=== PATIENT | female | born 1995 | race Caucasian/White ===

== ENCOUNTER → 2023-08-12 16:00 | Outpatient (BNVA) | payer MEDICARE, MEDICAID, SELFPAY | PROVIDERS: PCP Family Medicine; Visit Provider Family Medicine | DX: I10 Essential (primary) hypertension (principal); D64.9 Anemia, unspecified; F32.A Depression, unspecified; F41.9 Anxiety disorder, unspecified; M54.50 Low back pain, unspecified | CPT/HCPCS: 80053; 80061; 84443; 85025 ==

== ENCOUNTER → 2023-09-21 09:25 | Outpatient (BNVA) | payer MEDICARE, MEDICAID, SELFPAY | PROVIDERS: PCP Family Medicine; Visit Provider Family Medicine | DX: R07.9 Chest pain, unspecified (principal) | CPT/HCPCS: 93005 ==

== ENCOUNTER 2023-11-09 12:51 | Outpatient (CLI) | payer MEDICARE, MEDICAID, SELFPAY ==
--- NOTE | 2023-11-09 12:59 | XRR_ITS ---
PROCEDURE INFORMATION: Exam: XR Lumbosacral Spine Exam date and time: 11/09/2023 1:20 PM Age: 28 years old Clinical indication: Low back pain; Additional info: Vertebrogenic low back pain TECHNIQUE: Imaging protocol: Radiologic exam of the lumbosacral spine. Views: 2 or 3 views. COMPARISON: No relevant prior studies available. FINDINGS: Bones/joints: Bilateral L5 spondylolysis with grade 1/2 spondylolisthesis. Mild disc space narrowing at L5-S1. This does not appear to appreciably change with back motion.. No acute fracture. Normal alignment. Soft tissues: Unremarkable. XR/XR lumbar spine f/e only [id number] IMPRESSION: L5 spondylolysis with spondylolisthesis.
== END 2023-11-09 12:52 | disposition home or self-care (01) ==
LOC: RAD 12:54
PROVIDERS: PCP Family Medicine; Visit Provider Nurse Practitioner
DX: M47.816 Spondylosis without myelopathy or radiculopathy, lumbar region (principal); M43.16 Spondylolisthesis, lumbar region
CPT/HCPCS: 72120

== ENCOUNTER → 2023-11-13 11:46 | Outpatient (BNVA) | payer MEDICARE, MEDICAID, SELFPAY | PROVIDERS: PCP Family Medicine; Visit Provider Family Medicine | DX: I10 Essential (primary) hypertension (principal); D50.9 Iron deficiency anemia, unspecified; E66.9 Obesity, unspecified | CPT/HCPCS: 80053; 80061; 83540; 84443; 85025 ==

== ENCOUNTER → 2024-01-12 16:56 | Outpatient (BNVA) | payer MEDICARE, MEDICAID, SELFPAY | PROVIDERS: PCP Family Medicine; Visit Provider Family Medicine | DX: Z12.4 Encounter for screening for malignant neoplasm of cervix (principal) | CPT/HCPCS: 88175 ==

== ENCOUNTER → 2024-03-10 14:00 | Outpatient (BNVA) | payer MEDICAID, SELFPAY | PROVIDERS: PCP Family Medicine; Visit Provider Family Medicine | DX: E66.9 Obesity, unspecified (principal) | CPT/HCPCS: 80053 ==

== ENCOUNTER → 2024-07-19 13:51 | Outpatient (BNVA) | payer MEDICARE, MEDICAID, SELFPAY | PROVIDERS: PCP Nurse Practitioner Family; Visit Provider Orthopaedic Surgery | DX: M54.50 Low back pain, unspecified (principal); M43.17 Spondylolisthesis, lumbosacral region | CPT/HCPCS: 72110; 99204 ==

== ENCOUNTER 2024-07-22 06:59 | Outpatient (CLI) | payer MEDICARE, MEDICAID, SELFPAY ==
--- NOTE | 2024-07-22 07:15 | MR_ITS ---
WS: [id number] MRI LUMBAR SPINE NONCONTRAST TECHNIQUE: Sagittal T1, T2 and STIR imaging. Axial T1 and T2 imaging. CLINICAL INFORMATION: back pain COMPARISON: None. FINDINGS: Mild lumbar curve. No acute compression. No high-grade central canal stenosis. Grade 1 anterolisthesi s L5 on S1 with chronic pars defects. Dependent edema in the subcutaneous soft tissues. L1-L2: Mild facet arthropathy. Spinal canal and foramen are patent. L2-L3: Moderate facet arthropathy. Spinal canal and foramen are patent. L3-L4: No significant disc bulging. Moderate facet arthropathy. Spinal canal and foramen are patent. L4-L5: Mild annular bulging. Moderate facet arthropathy. Spinal canal and foramen are patent. L5-S1: Grade 1 anterolisthesis with chronic bilateral pars defects. Tiny annular fissure with mild di sc bulging. Moderate facet arthropathy. Mild bilateral foraminal narrowing with slight contact of the exiting L5 nerve roots bilaterally. Moderate facet arthropathy Visualized pelvic bony structures: Normal. Paravertebral soft tissues: Normal. MR/MR lumbar spine wo con* [id number] IMPRESSION: 1. Grade 1 anterolisthesis L5 on S1 with chronic bilateral pars defects. 2. Mild bilateral 5 S1 foraminal narrowing with moderate facet arthropathy. Mi ld disc bulging at this level with a tiny annular fissure. 3. Mild to moderate facet arthropathy throughout the lumbar spine. 4. No other acute findings.
== END 2024-07-22 07:00 | disposition home or self-care (01) ==
LOC: RAD 07:00
PROVIDERS: PCP Nurse Practitioner Family; Visit Provider Orthopaedic Surgery
DX: M43.16 Spondylolisthesis, lumbar region (principal); M47.896 Other spondylosis, lumbar region; M47.898 Other spondylosis, sacral and sacrococcygeal region
CPT/HCPCS: 72148

== ENCOUNTER → 2024-08-05 10:28 | Outpatient (BNVA) | payer MEDICARE, MEDICAID, SELFPAY | PROVIDERS: PCP Nurse Practitioner Family; Visit Provider Nurse Practitioner Family | DX: I10 Essential (primary) hypertension (principal); D50.9 Iron deficiency anemia, unspecified | CPT/HCPCS: 80053; 80061; 82607; 82728; 82746; 83550; 84443; 85025 ==

== ENCOUNTER → 2024-09-06 10:45 | Outpatient (BNVA) | payer MEDICARE, MEDICAID, SELFPAY | PROVIDERS: PCP Nurse Practitioner Family; Visit Provider Orthopaedic Surgery | DX: M43.17 Spondylolisthesis, lumbosacral region (principal) | CPT/HCPCS: 36415; 80053; 81001; 85025; 99214 ==

== ENCOUNTER → 2024-10-24 11:46 | Outpatient (BNVA) | payer MEDICARE, MEDICAID, SELFPAY | PROVIDERS: PCP Nurse Practitioner Family; Visit Provider Family Medicine | DX: Z01.818 Encounter for other preprocedural examination (principal) | CPT/HCPCS: 80053; 81003; 85007; 85027 ==

== ENCOUNTER 2024-10-26 10:49 | Observation (INO) | payer MEDICARE, MEDICAID, SELFPAY ==
[2024-10-26] VITALS (27 sets, daily range): BP systolic 100–137; BP diastolic 70–93; PULSE 79–116; RESP 13–22; TEMP 36.2–37.1; O2SAT 92–98; BMI 47.7
[2024-10-26] MEDS: sodium chloride 0.9% 1,000 ML 30 ML IV (06:12)
[2024-10-26 06:16] LABS: OR HCG Qualitative Urine Negative (Negative)
--- NOTE | 2024-10-26 06:26 | W.PM.OPSFHP ---
Same Day Surgery H&P Indication for Procedure/HPI DATE OF PROCEDURE: October 26, 2024 CHIEF COMPLAINT/INDICATIONFOR SURGICAL PROCEDURE: Back and leg pain PREOP DIAGNOSIS: L5-S1 spondylolisthesis PLANNED PROCEDURE: Operation Date: 10/26/24 07:00 Proposed Procedures p Spinal Fusion PSF(Not Applicable) - Carlos Eugene DO Medications/Allergies* Home Medications ?Medication ?Instructions ?Recorded ?Confirmed ?Type biotin 5,000 mcg chewable tablet 5,000 mcg PO DAILY 10/24/24 10/26/24 History Allergies/Adverse Reactions Allergy/AdvReac Type Severity Reaction Status Date / Time fluticasone (From Flonase) Allergy Intermediate ADR-Nose Verified 10/26/24 05:54 Bleed Opioids - Morphine Analogues Allergy Intermediate ALGY-Rash Verified 10/26/24 05:54 Current Medications: Generic Name Dose Route Start Last Admin Trade Name Freq PRN Reason Stop Dose Admin Sodium Chloride 1,000 mls @ 30 mls/hr 10/26/24 06:00 10/26/24 06:12 Sodium Chloride 0.9% IV 10/27/24 05:59 30 mls/hr .Q24H ROSANNE Administration Pertinent History/Comorbid Conditions* Medical History (Updated 07/19/24 @ 14:37 by Carlos Eugene DO) URI with cough and congestion Anxiety Depression Anemia Hypertension Surgical History (Updated 08/12/23 @ 15:47 by Angeli Dickerson MD) Hx of cholecystectomy Family History (Updated 08/12/23 @ 14:47 by Augustina Madden LPN, RT) Diabetes Grandmother Depression Denies family history of Clotting disorder Social History Smoking and tobacco/nicotine status: never used tobacco/nicotine Second hand smoke exposure: Yes Alcohol intake: never Substance/Drug Use: never Caregiver/support person: Yes Lives independently: No Household members: family Marital status: Single Highest education level completed: High School Graduate service: No Current occupational status: disabled Current gender identity: Female Special prakash needs: No Agree to transfusion: Yes Pertinent Exam Findings alert, oriented x 3 and procedure specific exam findings Recommendations Surgery/Procedure today Coding Level of Care Code Acute Code for Chg Fwd
--- NOTE | 2024-10-26 06:40 | ANES.PREANE2 ---
Pre-Anesthetic Assessment Height/Weight: Height 1.55 m Weight 114.759 kg Temp Pulse Resp BP Pulse Ox O2 Del Method 97.1 F L 96 17 123/82 94 Room Air 10/26/24 05:58 10/26/24 05:58 10/26/24 05:58 10/26/24 05:58 10/26/24 05:58 10/26/24 05:59 Preop Diagnosis: L5-S1 spondylolisthesis Operation Date: 10/26/24 07:00 Proposed Procedures p Spinal Fusion PSF(Not Applicable) - Carlos Eugene, DO Familial anesthetic complications: None Was Beta Sunny taken within 24 hours: N/A Was Clonidine taken within 24 hours: N/A Last intake: Intake Last Liquid Date 10/25/24 Last Liquid Time 20:00 Last Solid Date 10/25/24 Last Solid Time 18:00 Social No alcohol and No tobacco Exam alert, oriented x 3, clear to auscultation bilaterally and regular rate & rhythm Airway Mallampati: Class III Dentition: other (crowns) CV/HEM Hypertension GI Gastroesophageal Reflux Disease celiac Metabolic Morbid Obesity Anesthetic Plan ASA status: 3 Anesthesia: General Risk of > 500 ml blood loss (7ml/kg in children): No Medications/Allergies Home Medications ?Medication ?Instructions ?Recorded ?Confirmed ?Last Taken ?Type amlodipine 10 mg tablet 10 mg PO DAILY #30 tabs 08/05/24 10/26/24 10/26/24 Rx cetirizine 10 mg tablet (Zyrtec) 10 mg PO DAILY PRN allergy 08/05/24 10/26/24 Unknown Rx symptoms #90 tabs ferrous fumarate 325 mg (106 mg 325 mg PO DAILY #30 tabs 08/05/24 10/26/24 10/26/24 Rx iron) tablet fluoxetine 40 mg capsule 40 mg PO DAILY #30 caps 08/05/24 10/26/24 10/26/24 Rx montelukast 10 mg tablet 10 mg PO DAILY #30 tabs 08/05/24 10/26/24 10/26/24 Rx pantoprazole 40 mg tablet,delayed 40 mg PO DAILY #30 tabs 08/05/24 10/26/24 10/26/24 Rx release (Protonix) Bone Growth Stimulator #1 ea 10/04/24 Unknown Rx biotin 5,000 mcg chewable tablet 5,000 mcg PO DAILY 10/24/24 10/26/24 Unknown History Allergies Allergy/AdvReac Type Severity Reaction Status Date / Time fluticasone (From Flonase) Allergy Intermediate ADR-Nose Verified 10/26/24 05:54 Bleed Opioids - Morphine Analogues Allergy Intermediate ALGY-Rash Verified 10/26/24 05:54 Current Medications Generic Name Dose Route Start Last Admin Trade Name Freq PRN Reason Stop Dose Admin Sodium Chloride 1,000 mls @ 30 mls/hr 10/26/24 06:00 10/26/24 06:12 Sodium Chloride 0.9% IV 10/27/24 05:59 30 mls/hr .Q24H ROSANNE Administration PFSH Anesthesia Medical History URI with cough and congestion Anxiety Depression Anemia Hypertension Surgical History Hx of cholecystectomy Family History Grandmother Diabetes Other Depression Denies family history of Clotting disorder Social History Smoking and tobacco/nicotine status: never used tobacco/nicotine Second hand smoke exposure: Yes Alcohol intake: never Substance/Drug Use: never Caregiver/support person: Yes Lives independently: No Household members: family Marital status: Single Highest education level completed: High School Graduate service: No Current occupational status: disabled Current gender identity: Female Special prakash needs: No Agree to transfusion: Yes Data Anesthesia Cardiac Studies: No Data to Display
[2024-10-26] MEDS: ceFAZolin 2,000 mg SDV 2000 MG IVP ×3 (06:58→23:10)
[2024-10-26] MEDS: lidocaine-epi 1% 20 mL INJ 10 ML INJECTION (07:50)
[2024-10-26] MEDS: heparin, porcine 1,000 unit/mL INJ 10 mL 10000 UNIT IRRIGATION (07:50)
[2024-10-26] MEDS: VANCOMYCIN ADD-Vantage 1,000 MG VIAL 1000 MG XX ×2 (07:51→10:00)
--- NOTE | 2024-10-26 10:55 | P.OP_ITS ---
Operative Report Date of procedure: October 26, 2024 Pre-op diagnosis: L5-S1 grade 2 spondylolisthesis Post-op diagnosis: same Procedure done: 1. L5/S1 Interbody fusion with posterolateral fusion 2. Instrumentation L5/S1 3. Cage at L5/S1 4. L5/S1 laminectomy with facetectomies 5. use of autograft from same incision 6. allograft 7. Bone marrow aspirate from right iliac crest 8. Reduction of spondylolisthesis Surgeon: Carlos Eugene DO Estimated blood loss (mL): 450 Procedure: 1. L5/S1 Interbody fusion with posterolateral fusion 2. Instrumentation L5/S1 3. Cage at L5/S1 4. L5/S1 laminectomy with facetectomies 5. use of autograft from same incision 6. allograft 7. Bone marrow aspirate from right iliac crest 8. Reduction of spondylolisthesis Patient is brought to the operative suite. After undergoing anesthesia, the patient had neuro monitoring attached. Patient was then placed in the prone position on the Uriel table. All areas of impingement were well-padded. Patient was then prepped and draped in the normal sterile fashion. Skin incision was then made over the L5/S1 space. Subperiosteal dissection was made out to the transverse processes of L5 and S1. Once the exposure was complete attention was then brought to placing the pedicle screws. Prior to placing the pedicle screws the [place] bone marrow aspirate kit was used to aspirate bone marrow aspirate. This was done by using the sharp probe to open up the bone. Aspiration was performed and then the blunt probe was then used to dissect down to through the bone tunnel. An aspirating well drawn back a millimeter approximately 20 cc of bone marrow aspirate was used. Admixed with the allograft and autograft bone that will be used. The technique for placing the pedicle screws was to use a drill followed by the gearshift probe. Followed by the ball probe to feel the superior inferior medial lateral nieto of the pedicles. Then placement of the screws. Was done at each pedicle. Screws were placed at L5 bilaterally and S1 . Next attention was brought to performing the laminectomy ofL5. This was done using the high-speed bur Kerrisons and curettes. Once the lamina was removed and then attention was brought to performing a partial facetectomy on the contralateral side. This was done again using the high-speed bur curettes and Kerrisons. The ligamentum flavum was taken down bilaterally from L5 to S1. Attention was then brought to the facet on the ipsilateral side. The facet was taken down. The S1 nerve was decompressed as it passed around the S1 pedicle. The laminectomy was done for purposes of decompressing the nerve as well as placement of the cage. The L5 nerve was identified as it traversed through the L5/S1 foramen. The thecal sac was identified and retracted. The L5/S1 disc space was identified. Using a knife the disc base was opened. And then sequential stvee were placed. The first shaver was a 6 and the last shaver was a 10. Using a pituitary and down going curette the endplates were scraped and disc material was removed from the space. Once adequate decompression of the disc base was felt to be had. Osteoamp sponge was packed into the anterior aspect of the disc base. Then a size 11 cage from [employer] was placed after packing osteoamp into the cage. While placing the cage the thecal sac and S1 nerve was protected. C arm was used to ensure that the cages placed in the appropriate position. Attention was then brought to attaching the rods to the screws placed in the L5 bilaterally and S1. The S1 screw was locked in purse above the L5 screw reduction tool was used to reduce the L4 screw to the stefano allowing reduction of the L5-S1 spondylolisthesis. Caps were torqued into position. Locking the construct in place. Wound was copiously irrigated and then attention was brought to decorticating the facets and transverse processes laterally. Bone that was taken down from the lamina was used along with osteoamp fibers and sponges were packed into the lateral gutters along the facet joints. This was done bilaterally. Wound was then closed in a layered fashion starting with the thoracolumbar fascia. 0-vicryl was used the sub cutaneous tissue was closed with 2-0 vicryl and skin with 4-0 monocryl. Glue was then used to seal the skin and a steril dressing was applied. Patient was then placed in the supine position. The endotracheal tube was removed and patient was transferred to the PACU in stable condition.
[2024-10-26 11:31] LABS: Bilirubin Urine Negative (Negative); Blood Urine Negative (Negative); Glucose Urine UA Negative (Normal); Ketones Urine Negative (Negative); Leukocyte Esterase Urine Negative (Negative); Nitrate Urine Negative (Negative); Protein Urine Trace (Negative); Urine Appearance Turbid (CLEAR); Urine Color Yellow (Yellow); pH Urine 5.5 (5-7)
[2024-10-26 11:33] LABS: Add Urine Microscopic? YES; Bacteria Urine None Seen /hpf; Hyaline Casts Urine 2.46 /lpf; Squamous Epithelial Cell Urine 0-5 /hpf (0-5); WBC Urine 0-5 /hpf (0-5)
[2024-10-26 11:36] LABS: Add Urine Culture? No; Specific Gravity, Urine 1.037 (1.005-1.030)
[2024-10-26] MEDS: fentaNYL 50 mcg/mL INJ 2mL IVP ×2 (11:42→11:57)
--- NOTE | 2024-10-26 12:10 | ANE.PACU2 ---
Inpatient post-anesthesia follow up: Airway intact: Yes Vital signs: Temperature 98.6 F Pulse Rate 94 Respiratory Rate 18 Blood Pressure 121/83 Pulse Oximetry 97 Oxygen Delivery Me thod Room Air Oxygen Flow Rate 8 Fraction of Inspir ed Oxygen Hydration adequate: Yes Nausea and vomiting: No Pain level: 1 Mental status: Baseline
[2024-10-26] MEDS: lactated ringers 1,000 ML 90 ML IV ×2 (12:25→23:09)
[2024-10-26] MEDS: ketorolac 30 mg/mL INJ IVP (12:35)
--- NOTE | 2024-10-26 13:40 | XR_ITS ---
WS: [id number] Lumbar spine, C ARM fluoroscopy views, 10/26/2024 Clinical Data: TRISTEN PICS Comparison: Lumbar spine, 07/19/2024 Findings: Dr. Eugene performed a lumbosacral posterior fusion. XR/XR lumbar spine 2-3V* [id number] Impression: Posterior lumbosacral fusion.
[2024-10-26] MEDS: HYDROcodone-acetaminophen 5-325 mg Tablet PO ×2 (15:59→20:16)
[2024-10-26] MEDS: docusate sodium 100 mg Capsule PO (17:39)
[2024-10-27 04:24] VITALS: BP 124/79; PULSE 90; RESP 18; TEMP 36.9; O2SAT 94
[2024-10-27] MEDS: ceFAZolin 2,000 mg SDV 2000 MG IVP (05:49)
[2024-10-27] MEDS: HYDROcodone-acetaminophen 5-325 mg Tablet PO ×2 (05:50→10:29)
[2024-10-27 07:22] VITALS: BP 117/76; PULSE 93; RESP 16; TEMP 36.7; O2SAT 97
[2024-10-27] MEDS: fluoxetine 20 mg Capsule 40 MG PO (08:14)
[2024-10-27] MEDS: montelukast sodium 10 mg Tablet PO (08:15)
[2024-10-27] MEDS: pantoprazole DR 40 mg Tablet PO (08:15)
[2024-10-27] MEDS: docusate sodium 100 mg Capsule PO (08:15)
[2024-10-27] MEDS: amlodipine 10 mg Tablet PO (08:15)
--- NOTE | 2024-10-27 09:50 | PM.DCS ---
Discharge Providers Date of Admission: 10/26/24 10:49 Date of Discharge: October 27, 2024 Attending Provider at Admission: Carlos Eugene DO Attending Provider at Discharge: Carlos Eugene DO Primary Care Provider: CARINA Green Reason for Visit Reason for Visit: M43.17 Physical Exam Narrative: Patient doing well sitting in chair and is here she is up with therapy no complaints pain is well-controlled. Urinary Catheter Management: Larson: Cath Placed During This Visit: yes, but has since been removed by the nurse Reason for Continuing Indwelling Catheter: Perioperative Use in Selected Surgeries Urinary Catheter Date of Insertion: 10/26/24 Urinary Catheter Time of Insertion: 07:20 Date Urinary Catheter Removed: 10/27/24 Time Urinary Catheter Discontinued: 06:28 Discharge Data Studies Completed and Pending Completed Studies During Hospitalization Category Date Time Status XR lumbar spine 2-3V* [id number] Routine Exams 10/26/24 13:40 Completed Radiology Impressions Lumbar Spine X-Ray 10/26/24 13:40 Impression: Posterior lumbosacral fusion. Laboratory Results Urine Color Yellow (Yellow) 10/26/24 10:25 Urine Appearance Turbid (CLEAR) A 10/26/24 10:25 Urine pH 5.5 (5-7) 10/26/24 10:25 Ur Specific Dell 1.037 (1.005-1.030) H 10/26/24 10:25 Urine Protein Trace (Negative) A 10/26/24 10:25 Urine Glucose (UA) Negative (Normal) 10/26/24 10:25 Urine Ketones Negative (Negative) 10/26/24 10:25 Urine Blood Negative (Negative) 10/26/24 10:25 Urine Nitrate Negative (Negative) 10/26/24 10:25 Urine Bilirubin Negative (Negative) 10/26/24 10:25 Urine Urobilinogen 1.0 mg/dL (Negative) 10/26/24 10:25 Ur Leukocyte Esterase Negative (Negative) 10/26/24 10:25 Urine RBC 11-20 /hpf (0-2) H 10/26/24 10:25 Urine WBC 0-5 /hpf (0-5) 10/26/24 10:25 Ur Squamous Epith Cells 0-5 /hpf (0-5) 10/26/24 10:25 Amorphous Sediment Not Reportable 10/26/24 10:25 Urine Bacteria None seen /hpf (NONE) 10/26/24 10:25 Hyaline Casts 2.46 /lpf 10/26/24 10:25 Urine HCG, Qual Negative (Negative) 10/26/24 05:50 Blood Type O Positive 10/26/24 06:05 Rho(D) Type Rh positive 10/26/24 06:05 Antibody Screen Negative 10/26/24 06:05 Vitals Last Vital Signs Temp 98.1 F 10/27/24 07:22 Pulse 93 10/27/24 07:22 Resp 16 10/27/24 07:22 BP 117/76 10/27/24 07:22 Pulse Ox 97 10/27/24 07:22 O2 Del Method Room Air 10/27/24 07:22 O2 Flow Rate 8 10/26/24 11:12 Discharge Plan Discharge Patient Disposition: Home Condition: Stable Prescriptions: New hydrocodone-acetaminophen 5-325 mg tablet 1 - 2 tab PO .Q4-6H Qty: 40 0RF Continued biotin 5,000 mcg tablet,chewable 5,000 mcg PO DAILY cetirizine [Zyrtec] 10 mg tablet 10 mg PO DAILY PRN (Reason: allergy symptoms) Qty: 90 1RF amlodipine 10 mg tablet 10 mg PO DAILY Qty: 30 5RF ferrous fumarate 325 mg (106 mg iron) tablet 325 mg PO DAILY Qty: 30 5RF fluoxetine 40 mg capsule 40 mg PO DAILY Qty: 30 5RF montelukast 10 mg tablet 10 mg PO DAILY Qty: 30 5RF pantoprazole [Protonix] 40 mg tablet,delayed release (DR/EC) 40 mg PO DAILY Qty: 30 5RF (DME) Bone Growth Stimulator See Rx Instructions .Route .MEDSUPPLY Qty: 1 0RF Rx Instructions: As directed Discharge Orders: Discharge Order (Routine); Ordered 10/27/24 Ordered By: Carlos Eugene Referrals: Carlos Eugene DO [Physician] - 11/08/24 8:30 am Discharge Diet: Advance as tolerated Discharge Activity: Limit activity as instructed Patient Instructions: Acute Wound Care (DC), Opioid Safety, Post Anesthesia Care Activity Restrictions/Additional Instructions: Thank you for [facility] for your care! The following is a list of instructions, from your provider, to follow upon your discharge to ensure you have the optimal recovery from your recent injury orsurgery. Follow-up care is a vogel part of your treatment and safety. Be sure to make and go to all appointments, and call your doctor if you are having problems. If you do not already have a follow-up appointment made, call Dr. Eugene office in the next 1-3 days to make follow up appointment for 1 weeks at [phone]. It is also a good idea to know your test results and keep a list of the medicines you take. Medications will be prescribed for you at your provider's discretion. These medications are to be used as instructed; if they are taken more often that prescribed they will not be refilled early and in most cases will not be refilled at all. > When a refill is needed,you should contact amaya brown 2-3 business days before your prescription runs out. Medications will NOT be refilled by reference and instruction librarian providers after hours! > Many pain medications contain Tylenol (Acetaminophen). Do not consume more than 4,000 mg of Tylenol per day in total with any combination ofmedications. > Pain medications can cause constipation. Please use an over the counter stool softener as directed, while taking pain medications. Consulty our local pharmacist with questions or recommendations on stool softeners. If constipation persists, contact our office or your primary care provider. > While under our care,you are not to receive pain medications or other controlled substances from any other provider unless our office is notified and approves. Any attempts to do so will result in refusal to prescribe any further pain medications and possible dismissal from our practice. ? Keep wound covered with dressing until we see you in clinic in 1 week. ? Showering is permitted, however we ask that you do not take a bath, sit in a whirlpool / Jacuzzi, or go swimming for 1 month. For only the first 2 days after surgery, lt wilt be necessary for you to cover your wound/dressing with plastic and tape to keep it dry. ? Walking is essential for the healing process after surgery. We would like you to slowly advance your walking. This should be done on relatively flat clear ground (inside or out) or can be done on a treadmill. Remember this goal does not have to happen all at once, slowly increase your distance and duration. This can be broken into more more than one walk per day as tolerated. Patients who walk as directed after surgery rarely require Physical Therapy. In the unlikely event this issue arises your provider will direct hospital staff to make the appropriate arrangements. ? No lifting over 5 pounds {a gallon of milk) or bending/twisting until further notice. Each of these activities places an unnecessary amount of stress onto the body and can impede the delicate healing process. > Instead of bending at the waist, keep your back straight and bend at the knees. > Instead of twisting your torso, keep your back straight and turn your entire body with your feet. ? You may sleep in any position which makes you comfortable. Many patients find comfort sleeping in a reclining chair. It is not abnormal to have difficulty sleeping for the first several weeks following your surgery. We recommend trying Benadry! or Tylenol PM as directed to help with your sleeping difficulties. Both medications are over the counter and available withoutprescription. ? NO SMOKING!!! Smoking dramatically increases the probability of developing postoperative wound infections. ? Common complaints after lumbar and/or thoracic spine surgery include, but are not limited to: numbness and/or tingling in the legs, pain around the incision and surrounding tissues, muscle spasms, or stiffness of the middle to low back. Contact our office if these symptoms persist or if an acute change occurs. ? No driving for the first 3-5days, and not while taking narcotics [] until seen at your follow-up appointment and cleared. There are no restrictions for riding on short trips, however if you take a longer trip, arrangements should be made to make regular stops to get out of the vehicle and stretch . ? Swelling is an unfortunate event that will take place with any surgery and is the primary source of your postoperative discomfort. While walking and regular approved activities helps control inflammation, there are additional steps you can take to minimizeswelling. > Place ice over the surgical site and surrounding tissue for twenty minutes, followed by applying a low/medium heat (heating pad) for an additional twenty minutes every 1-2 hours as needed for painrelief. > You may use of over the counter anti-inflammatory medications (Ibuprofen, Motrin, Aleve, Advil, etc) as directed on the package label. These types of medicines wm significantly reduce the amount of discomfort you experience after surgery from swelling. It should be noted that if you have and allergy to any of these medications, or a history of ulcers or kidney disease you should consult you primary care provider prior to starting these medications. Discharge Attestations Time Spent in Discharge Care*: less than 30 min Quality Metrics Clinical Quality Measures [ No reported AMI, CVA or VTE this stay] Coding Level of Care Code Acute Code for Chg Fwmagdalena
--- NOTE | 2024-10-27 10:38 | PC.NURSE ---
hemovac drain removed at 1030 and dressing applied over site.
[2024-10-27 10:47] LABS: Glucose Point of Care 105 mg/dL (70-110)
[2024-10-27 11:04] VITALS: BP 117/76; PULSE 93; RESP 16; TEMP 36.7; O2SAT 97
== END 2024-10-27 11:05 | disposition home or self-care (01) ==
LOC: MEDSURG 10:52
PROVIDERS: Student in an Organized Health Care Education/Training Program; Admitting Provider Orthopaedic Surgery; PCP Nurse Practitioner Family; Visit Provider Orthopaedic Surgery
PROC: (CPT 22633; principal; 2024-10-26 07:00)
DX: M43.17 Spondylolisthesis, lumbosacral region (principal); I10 Essential (primary) hypertension; E66.01 Morbid (severe) obesity due to excess calories; Z68.42 Body mass index [BMI] 45.0-49.9, adult
CPT/HCPCS: 22633; 22842; 22853; 63052; 20936; 20930; 20939; 36415; 36416; 51702; 72100; 76000; 81001; 81025; 82962; 86850; 86900; 97110; 97161; 97530; C1713; G0378; J0131; J0690; J1100; J1171; J1200; J1644; J1885; J2250; J2371; J2405; J2704; J3010; J3370; J3490; J7030; J7120; J9999

== ENCOUNTER → 2024-11-08 08:37 | Outpatient (BNVA) | payer MEDICARE, MEDICAID, SELFPAY | PROVIDERS: PCP Nurse Practitioner Family; Visit Provider Orthopaedic Surgery | DX: Z98.1 Arthrodesis status (principal) | CPT/HCPCS: 99024 ==

== ENCOUNTER → 2024-11-15 08:58 | Outpatient (BNVA) | payer MEDICARE, MEDICAID, SELFPAY | PROVIDERS: PCP Nurse Practitioner Family; Visit Provider Orthopaedic Surgery | DX: Z98.1 Arthrodesis status (principal) | CPT/HCPCS: 99024 ==

== ENCOUNTER → 2024-11-24 08:14 | Outpatient (BNVA) | payer MEDICARE, MEDICAID, SELFPAY | PROVIDERS: PCP Nurse Practitioner Family; Visit Provider Orthopaedic Surgery | DX: Z98.1 Arthrodesis status (principal) | CPT/HCPCS: 99024 ==

== ENCOUNTER → 2024-11-29 08:21 | Outpatient (BNVA) | payer MEDICARE, MEDICAID, SELFPAY | PROVIDERS: PCP Nurse Practitioner Family; Visit Provider Orthopaedic Surgery | DX: Z98.1 Arthrodesis status (principal) | CPT/HCPCS: 72100; 99024 ==

== ENCOUNTER → 2024-12-08 13:31 | Outpatient (BNVA) | payer MEDICARE, MEDICAID, SELFPAY | PROVIDERS: PCP Nurse Practitioner Family; Visit Provider Orthopaedic Surgery | DX: Z98.1 Arthrodesis status (principal) | CPT/HCPCS: 72100; 99024 ==

== ENCOUNTER → 2024-12-22 13:22 | Outpatient (BNVA) | payer MEDICARE, MEDICAID, SELFPAY | PROVIDERS: PCP Nurse Practitioner Family; Visit Provider Orthopaedic Surgery | DX: M54.9 Dorsalgia, unspecified (principal); Z98.1 Arthrodesis status | CPT/HCPCS: 72100; 99024 ==

== ENCOUNTER → 2025-01-19 14:05 | Outpatient (BNVA) | payer MEDICARE, MEDICAID, SELFPAY | PROVIDERS: PCP Nurse Practitioner Family; Visit Provider Orthopaedic Surgery | DX: Z98.1 Arthrodesis status (principal) | CPT/HCPCS: 72100; 99024 ==

== ENCOUNTER 2025-03-07 11:55 | Emergency (ER) | payer OTHER, MEDICAID, SELFPAY ==
--- OUTSIDE RECORDS SUMMARY | 2024-06-04 04:00 | XMS_ITS ---
Author Organization [facility] Address [address] [place] [address] Care Team Providers Care Search Analyst Name Role Phone Bright Wilson Primary Care Provider Unavailabl e Migration, Provider Unavailable Unavailable REASON FOR VISIT EMR-Pillo Encounters Encounter Location Date Provider Diagnosis Migrated_Facility 0 0 06/04/2024 Provider Migration Plan Of Treatment No Information Progress Notes * Anaya DOYLEDOB: 4 (29 yo F)Acc No.[id number]:06/04/2024 Patient: Gali Anaya SEXTON :1995 A ge:29 Y S ex:Female Address:[address] [place] [address], [id number] Subjective: * Chief Complaints: * E MR-Pillo * * Date:
--- OUTSIDE RECORDS SUMMARY | 2024-06-05 04:00 | XMS_ITS ---
Author Organization [facility] Address [address] [place] [address] Care Team Providers Care Outdoor Fitness Trainer Name Role Phone Bright Wilson Primary Care Provider Unavailabl e Migration, Provider Unavailable Unavailable REASON FOR VISIT EMR-Pillo Encounters Encounter Location Date Provider Diagnosis Migrated_Facility 0 0 06/05/2024 Provider Migration Plan Of Treatment No Information Progress Notes * Anaya DOYLEDOB: 4 (29 yo F)Acc No.[id number]:06/05/2024 Patient: Gali Anaya SEXTON :1995 A ge:29 Y S ex:Female Address:[address] [place] [address], [id number] Subjective: * Chief Complaints: * E MR-Pillo * * Date:
[2025-03-07 11:57] VITALS: BP 131/85; PULSE 90; TEMP 36.9; O2SAT 98
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
--- OUTSIDE RECORDS SUMMARY | 2025-03-07 12:01 | XMS_ITS | Patient Health Record ---
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 Role Phone Bright Wilson Primary Care Provider Unavailabl e Migration, Provider Unavailable Unavailable Reason For Referral Reason eval and treat Diagnosis 1 Vertebrogenic low ba ck pain (M54.51) Referring Provider First Name Lenin Referring Provider Last Name Fern Referring Provider Speciality Pain Medic ine Referred Organization [facility] Referred Provider Kalpana Cannon Referred Address [address] [place] [phone], Referred Provider Specialty Pain Medicin e General Notes Mariel Espitia 12/08 07:29:50 AM >insurance not accepted by [facility] Twyla A 12/30/2024 12:05:08 PM >atc pt to discuss oon ins, no answer Referral Priority Routine Encounters Encounter Location Date Provider Diagnosis Migrated_Facility 0 0 06/05/2024 Provider Migration Migrated_Facility 0 0 06/04/2024 Provider Migration Plan Of Treatment No Information Insurance Providers Payer Name Payer Address Payer Phone Subscriber Number Group Number Insured Name Patient Relationship to Insured Coverage Start Date Coverage End Date NOT IN [facility] Medicare Dual Complete HMO [address] [address] [place] [id number] [phone] [id number] [employer] Anaya Doyle Self - patient is the insured [place] Medicaid [address] [place] [address] [phone] [id number] Anaya Doyle Self - patient is the insured
--- NOTE | 2025-03-07 12:10 | ECG_ITS ---
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 Measurements Intervals [place] Rate: 88 P: 37 MS: 128 QRS: 18 QRSD: 93 T: 19 QT: 359 QTc: 436 Interpretive Statements SINUS RHYTHM POSSIBLE ANTERIOR MYOCARDIAL INFARCTION , PROBABLY OLD [30 ms Q WAVE IN V3/V4, OR R < 0.2 mV IN V4] INTERPRETATION BASED ON A DEFAULT AGE OF 40 YEARS No previous ECG available for comparison Electronically Signed On 03-09-2025 10:26:21 CDT by Jigar Villalobos M.D. [email or web address]
--- NOTE | 2025-03-07 12:10 | XRR_ITS ---
PROCEDURE INFORMATION: Exam: XR Chest Exam date and time: 03/07/2025 12:16 PM Age: 29 years old Clinical indication: Pain; Angina pectoris; Additional info: Chest pain TECHNIQUE: Imaging protocol: Radiologic exam of the chest. Views: 1 view. COMPARISON: No relevant prior studies available. FINDINGS: Lungs: Unremarkable. No consolidation. Pleural spaces: Unremarkable. No pleural effusion. No pneumothorax. Heart/Mediastinum: Unremarkable. No cardiomegaly. Bones/joints: Unremarkable. Other findings: Indeterminate density at the right cardiophrenic angle could represent a fat pad. XR/XR chest 1V portable [id number] IMPRESSION: Indeterminate density at the right cardiophrenic angle could represent a fat pad. No acute cardiopulmonary abnormality.
--- NOTE | 2025-03-07 12:13 | ED_ITS ---
HPI - Chest Pain 2 General: Chief Complaint: Chest Pain Stated Complaint: chest pain, sob Time Seen by Provider: 03/07/25 12:10 History of Present Illness: 29-year-old female presents emergency ro om shortness of breath and chest pain this morning. Chest pain has been ongoing for the last 1 to 2 days. Patient has no history of PE or DVT she denies any anticoagulants. She has not she takes deep breath or cough makes it worse. She has not had any hemoptysis no productive cough no fever sweats chills no vomiting or diarrhea has not been around anyone that has COVID or flu that she is aware of. She does have a history of hypertension but no history of coronary artery disease. Associated symptoms: Deny abdominal pain, dyspnea or fever(s) Related Data Home Medications ?Medication ?Instructions ?Recorded ?Confirmed biotin 5,000 mcg chewable tablet 5,000 mcg PO DAILY 01/19/25 Previous Rx's ?Medication ?Instructions ?Recorded cetirizine 10 mg tablet (Zyrtec) 10 mg PO DAILY PRN al lergy 08/05/24 symptoms #90 tabs ferrous fumarate 325 mg (106 mg 325 mg PO DAILY #30 ta bs 08/05/24 iron) tablet pantoprazole 40 mg tablet,delayed 40 mg PO DAILY #30 t abs 08/05/24 release (Protonix) Bone Growth Stimulator #1 ea 10/04/24 hydrocodone 5 mg-acetaminophen 325 1 - 2 tab PO .Q4-6H #40 tabs 10/27/24 mg tablet sulfamethoxazole 800 1 tab PO BID 10 days #20 tab s 11/15/24 mg-trimethoprim 160 mg tablet (Bactrim DS) amlodipine 10 mg tablet See Rx Instructions .Route 0 12/29/24 .COMPLEX #90 tabs fluoxetine 40 mg capsule See Rx Instructions .Route 0 01/27/25 .COMPLEX #90 caps montelukast 10 mg tablet See Rx Instructions .Route 0 01/27/25 .COMPLEX #90 tabs diclofenac sodium 75 mg 75 mg PO Q12H PRN pain #20 t abs 03/07/25 tablet,delayed release Allergies Allergy/AdvReac Type Severity Reaction Status Date / Time fluticasone (From Flonase) Allergy Intermediate ADR-Nose Verified 03/07/25 12:07 Bleed Opioids - Morphine Analogues Allergy Intermediate ALGY-Rash Verified 03/07/25 12:07 Review of Systems 2 Const: Denies: fever(s) or chills Card: Denies: chest pain Resp: Denies: dyspnea GI: Denies: abdominal pain : Denies: dysuria, urinary frequency or urinary urgency Musc: Denies: neck pain or back pain Skin/Breast: Denies: rash PFSH ED 2 PFSH: Medical History URI with cough and congestion Anxiety Depression Anemia Hypertension Surgical History Hx of cholecystectomy Family History Grandmother Diabetes Other Depression Denies family history of Clotting disorder Social History Smoking and tobacco/nicotine status: unknown if used tobacco/nicotine Second hand smoke exposure: Yes Alcohol intake: never Substance/Drug Use: never Caregiver/support person: Yes Lives independently: No Household members: family Marital status: Single Highest education level completed: High School Graduate service: No Current occupational status: disabled Current gender identity: Female Special prakash needs: No Agree to transfusion: Yes Physical Exam 2 Const: GENERAL APPEARANCE: cooperative ORIENTATION/CONSCIOUSNESS: Yes awake HENMT: COMMON NORMALS: normocephalic, atraumatic and hearing grossly normal bilaterally HEAD & SCALP: normocephalic and atraumatic Resp: COMMON NORMALS: normal respiratory effort, No retractions, No use of accessory muscles and clear to auscultation bilaterally AUSCULTATION: clear to auscultation bilaterally Cardio: COMMON NORMALS: regular rate, regular rhythm and No murmurs present (Cardio) RATE: regular rate RHYTHM: regular rhythm GI: COMMON NORMALS: Soft to palpation and No hepatosplenomegaly present A USCULTATION: Yes normoactive bowel sounds PALPATION: Yes Soft to palpation, No Tenderness to palpation present (GI), No Guarding due to palpation present (GI) and Yes No hepatosplenomegaly present Extremity: COMMON NORMALS: normal to inspection, capillary refill normal, no clubbing, cyanosis or edema, no calf tenderness and no pedal edema Skin: COMMON NORMALS: no rashes or lesions noted GENERAL SKIN EXAM: no rashes or lesions noted Course 2 Vital Signs: Vital signs: Vital Signs Temperature 98.4 F 03/07/25 11:57 Pulse Rate 86 03/07/25 14:25 Respiratory Rate 16 03/07/25 14:25 Blood Pressure 123/81 03/07/25 14:25 Pulse Oximetry 99 03/07/25 14:25 Oxygen Delivery Me thod Room Air 03/07/25 13:06 MDM - Chest Pain Medical Decision Making Troponin normal EKG normal patient does not have any persistent chest pain is reproducible with deep inspiration will discharge home with pleuritic chest pain diclofenac to use as needed follow-up as needed Medical Records I reviewed the patient's medical records. Lab Data I reviewed the patient's lab results. 03/07/25 12:15 03/07/25 12:15 Radiology Impressions Chest X-Ray 03/07/25 12:10 IMPRESSION: Indeterminate density at the right cardiophrenic angle could represent a fat pad. No acute cardiopulmonary abnormality. Laboratory Results WBC 12.60 10^3/uL (3.29-11.43) H 03/07/25 12:15 RBC 5.07 10^6/uL (3.85-5.65) 03/07/25 12:15 Hgb 13.00 g/dL (11.27-16.99) 03/07/25 12:15 Hct 40.8 % (36-47) 03/07/25 12:15 MCV 80.5 fl (85-98) L 03/07/25 12:15 MCH 25.6 pg (27-33) L 03/07/25 12:15 MCHC 31.9 g/dL (30-55) 03/07/25 12:15 RDW 14.3 % (12.1-15.1) 03/07/25 12:15 Plt Count 330 10^3/cmm (157-399) 03/07/25 12:15 MPV 9.8 fL (7.4-10.4) 03/07/25 12:15 Neut % (Auto) 78.7 % 03/07/25 12:15 Lymph % (Auto) 13.4 % 03/07/25 12:15 [place] % (Auto) 6.7 % 03/07/25 12:15 Eos % (Auto) 0.7 % 03/07/25 12:15 Baso % (Auto) 0.3 % 03/07/25 12:15 Neut # (Auto) 9.91 10^3/uL (1.8-7.7) H 03/07/25 12:15 Lymph # (Auto) 1.7 10^3/uL (0.8-4.8) 03/07/25 12:15 [place] # (Auto) 0.8 10^3/uL (0.2-0.9) 03/07/25 12:15 Eos # (Auto) 0.1 10^3/uL (0.0-0.8) 03/07/25 12:15 Baso # (Auto) 0.0 10^3/uL (0.0-0.1) 03/07/25 12:15 Nucleated RBC % (auto) 0 % 03/07/25 12:15 Nucleated RBCs # 0.0 /100WBC 03/07/25 12:15 Sodium 138 mmol/L (136-145) 03/07/25 12:15 Potassium 4.1 mmol/L (3.5-5.1) 03/07/25 12:15 Chloride 99 mmol/L (98-107) 03/07/25 12:15 Carbon Dioxide 24 mmol/L (22-29) 03/07/25 12:15 Anion Gap 19.1 (5-19) H 03/07/25 12:15 BUN 8 mg/dL (6-20) 03/07/25 12:15 Creatinine 0.6 mg/dL (0.5-0.9) 03/07/25 12:15 GFR Calculation 117.4 mL/min (90-130) 03/07/25 12:15 Glucose 122 mg/dL (65-115) H 03/07/25 12:15 Calculated Osmolality 286 mOsm/kg (285-295) 03/07/25 12:15 Calcium 9.2 mg/dL (8.5-10.5) 03/07/25 12:15 Total Bilirubin 0.5 mg/dL (0.15-1.2) 03/07/25 12:15 AST 19 U/L (0-32) 03/07/25 12:15 ALT 23 U/L (0-33) 03/07/25 12:15 Alkaline Phosphatase 113 U/L (35-105) H 03/07/25 12:15 Troponin T Baseline < 6 ng/L (0-10) 03/07/25 12:15 Total Protein 7.5 g/dL (6.6-8.7) 03/07/25 12:15 Albumin 4.3 g/dL (3.5-5.2) 03/07/25 12:15 Globulin 3.2 g/dL (1.3-4.6) 03/07/25 12:15 All radiology interpretation(s) finalized by discharge EKG Data EKG 1: Interpretation: EKG 03/07/2000 2512 2 PM EKG shows a normal sinus rhythm. No acute ST changes noted. Heart rate of 88 TX interval of 128 QTc 436. No old EKGs to compare Discharge Plan Discharge Patient Disposition: Home Clinical Impression: Pleuritic chest pain Condition: Stable Prescriptions: New diclofenac sodium 75 mg tablet,delayed release (DR/EC) 75 mg PO Q12H PRN (Reason: pain) Qty: 20 0RF No Action biotin 5,000 mcg tablet,chewable 5,000 mcg PO DAILY cetirizine [Zyrtec] 10 mg tablet 10 mg PO DAILY PRN (Reason: allergy symptoms) Qty: 90 1RF ferrous fumarate 325 mg (106 mg iron) tablet 325 mg PO DAILY Qty: 30 5RF pantoprazole [Protonix] 40 mg tablet,delayed release (DR/EC) 40 mg PO DAILY Qty: 30 5RF sulfamethoxazole-trimethoprim [Bactrim DS] 800-160 mg tablet 1 tab PO BID 10 Days Qty: 20 0RF (DME) Bone Growth Stimulator See Rx Instructions .Route .MEDSUPPLY Qty: 1 0RF Rx Instructions: As directed amlodipine 10 mg tablet See Rx Instructions .ROUTE .COMPLEX Qty: 90 1RF Dose Instruction: TAKE 1 TABLET BY MOUTH EVERY DAY Rx Instructions: TAKE 1 TABLET BY MOUTH EVERY DAY fluoxetine 40 mg capsule See Rx Instructions .ROUTE .COMPLEX Qty: 90 0RF Dose Instruction: TAKE 1 CAPSULE BY MOUTH EVERY DAY Rx Instructions: TAKE 1 CAPSULE BY MOUTH EVERY DAY montelukast 10 mg tablet See Rx Instructions .ROUTE .COMPLEX Qty: 90 0RF Dose Instruction: TAKE 1 TABLET BY MOUTH EVERY DAY Rx Instructions: TAKE 1 TABLET BY MOUTH EVERY DAY hydrocodone-acetaminophen 5-325 mg tablet 1 - 2 tab PO .Q4-6H Qty: 40 0RF Discharge Orders: Discharge ED (Routine); Ordered 03/07/25 Ordered By: Mikhail Raza Referrals: Augustina Neville FNP [Primary Care Provider, Family Practice] Discharge Diet: Usual diet Discharge Activity: Resume usual activity Patient Instructions: Opioid Safety, Pain Management, Patient Portal & [place] Instructions Activity Restrictions/Additional Instructions: [facility]. It is very important that you follow up as instructed or that you return to the Emergency Department should you have concerns or if your condition changes or worsens in any way. You were seen in the emergency room with complaints of chest discomfort. EKG and troponin were normal chest x-ray did not show any acute findings. Your exam was otherwise unremarkable. Since your chest pain is reproducible with deep inspiration is most likely pleuritic in nature will start you on diclofenac to use as needed if your symptoms persist recheck in the emergency room or with your primary care doctor Print Language: Zambian Coding Level of Care Code ED Assistant Mechanic for Florence Miles
[2025-03-07 12:23] LABS: Hematocrit 40.8 % (36-47); Hemoglobin 13.00 g/dL (11.27-16.99); Mean Corpuscular HGB Conc 31.9 g/dL (30-55); Mean Corpuscular Hemoglobin 25.6 pg (27-33); Mean Corpuscular Volume 80.5 fl (85-98); Nucleated Red Blood Cells % 0 %; Platelet Count 330 10^3/cmm (157-399); Red Blood Count 5.07 10^6/uL (3.85-5.65); White Blood Count 12.60 10^3/uL (3.29-11.43)
[2025-03-07 12:47] LABS: Alanine Aminotransferase 23 U/L (0-33); Albumin Level 4.3 g/dL (3.5-5.2); Alkaline Phosphatase 113 U/L (35-105); Anion Gap 19.1 (5-19); Aspartate Amino Transferase 19 U/L (0-32); Blood Urea Nitrogen 8 mg/dL (6-20); Calcium 9.2 mg/dL (8.5-10.5); Carbon Dioxide 24 mmol/L (22-29); Chloride 99 mmol/L (98-107); Creatinine Clr Calc Pharmacy 164.1739; Globulin 3.2 g/dL (1.3-4.6); Glucose 122 mg/dL (65-115); Osmolality Calculated 286 mOsm/kg (285-295); Potassium 4.1 mmol/L (3.5-5.1); Sodium 138 mmol/L (136-145); Total Protein 7.5 g/dL (6.6-8.7)
[2025-03-07 13:06] VITALS: BP 124/94; PULSE 84; RESP 18; O2SAT 98
[2025-03-07 14:08] LABS: Troponin(5th) Baseline < 6 ng/L (0-10)
[2025-03-07 14:25] VITALS: BP 123/81; PULSE 86; RESP 16; O2SAT 99
== END 2025-03-07 14:30 | disposition home or self-care (01) ==
PROVIDERS: Emergency Provider Family Medicine; PCP Nurse Practitioner Family
DX: R07.81 Pleurodynia (principal); I10 Essential (primary) hypertension
CPT/HCPCS: 71045; 80053; 84484; 85025; 93005; 99285

== ENCOUNTER → 2025-04-06 11:51 | Outpatient (BNVA) | payer OTHER, MEDICAID, SELFPAY | PROVIDERS: PCP Nurse Practitioner Family; Visit Provider Nurse Practitioner Family | DX: I10 Essential (primary) hypertension (principal); R73.9 Hyperglycemia, unspecified | CPT/HCPCS: 80053; 80061; 83036; 84443; 85025 ==

== ENCOUNTER 2025-04-18 09:00 | Outpatient (CLI) | payer OTHER, MEDICAID, SELFPAY ==
[2025-04-18 09:43] LABS: Anion Gap 10.6 (5-19); Blood Urea Nitrogen 8 mg/dL (6-20); Calcium 9.5 mg/dL (8.5-10.5); Carbon Dioxide 29 mmol/L (22-29); Chloride 104 mmol/L (98-107); Glucose 103 mg/dL (65-115); Osmolality Calculated 287 mOsm/kg (285-295); Potassium 4.6 mmol/L (3.5-5.1); Sodium 139 mmol/L (136-145)
== END 2025-04-18 09:01 | disposition home or self-care (01) ==
PROVIDERS: PCP Nurse Practitioner Family; Visit Provider Nurse Practitioner Family
DX: E87.5 Hyperkalemia (principal)
CPT/HCPCS: 80048

== ENCOUNTER → 2025-04-20 14:06 | Outpatient (BNVA) | payer OTHER, MEDICAID, SELFPAY | PROVIDERS: PCP Nurse Practitioner Family; Visit Provider Orthopaedic Surgery | DX: Z98.1 Arthrodesis status (principal) | CPT/HCPCS: 72100; 99213 ==

== ENCOUNTER 2025-05-10 06:30 | Outpatient (RCR) | payer OTHER, MEDICAID, SELFPAY | END 2025-06-09 23:59 | disposition home or self-care (01) | LOC: SPT 06:30 | PROVIDERS: Visit Provider Orthopaedic Surgery | DX: M54.9 Dorsalgia, unspecified (principal); G89.29 Other chronic pain | CPT/HCPCS: 97110; 97161 ==

== ENCOUNTER 2025-06-10 05:00 | Outpatient (RCR) | payer MEDICAID, MEDICARE, SELFPAY | END 2025-07-09 23:59 | disposition home or self-care (01) | LOC: SPT 05:00 | PROVIDERS: Visit Provider Orthopaedic Surgery | DX: M54.9 Dorsalgia, unspecified (principal); G89.29 Other chronic pain | CPT/HCPCS: 97110 ==

== ENCOUNTER → 2025-07-27 10:40 | Outpatient (BNVA) | payer MEDICAID, MEDICARE, SELFPAY | PROVIDERS: Visit Provider Orthopaedic Surgery | DX: Z47.89 Encounter for other orthopedic aftercare (principal); Z98.1 Arthrodesis status | CPT/HCPCS: 72100; 99213 ==